=== PATIENT | male | born 1960 | race Caucasian/White ===

== ENCOUNTER 2024-03-10 19:02 | Inpatient (IN) | payer OTHER, MEDICARE, SELFPAY ==
[2024-03-10] VITALS (13 sets, daily range): BP systolic 111–161; BP diastolic 53–78; BMI 34.9
[2024-03-10 14:36] LABS: % Basophils 0.3 % (0-2); % Eosinophils 0.6 % (0-6); % Immature Granulocytes 0.6 % (0-0.5); % Lymphocytes 5.8 % (20.5-51.1); % Monocytes 8.5 % (1.7-9.3); % Neutrophils 84.2 % (42.2-75.2); Absolute Basophils 0.1 10^3/uL (0-0.2); Absolute Eosinophils 0.1 10^3/uL (0-0.7); Absolute Immature Granulocytes 0.1 10^3/uL (0-0.05); Absolute Lymphocytes 0.8 10^3/uL (1.2-3.4); Absolute Monocytes 1.2 10^3/uL (0.1-0.6); Absolute Neutrophils 12.1 10^3/uL (1.4-6.5); Hematocrit 31.3 % (39.0-52.0); Hemoglobin 10.9 g/dL (13.0-18.0); Mean Corp Hgb Conc. 34.8 g/dL (33.0-37.0); Mean Corpuscular Hgb 27.6 pg (27.0-31.0); Mean Corpuscular Volume 79.2 fL (80.0-94.0); Mean Platelet Volume 10.3 fL (7.4-10.4); Nucleated Red Blood Cells % 0 % (-); Platelet Count 238 10^3/uL (130-400); Red Blood Cell Count 3.95 10^6/uL (4.70-6.10); Red Cell Dist. Width 14.4 % (11.5-14.5); White Blood Cell Count 14.4 10^3/uL (4.8-10.8)
--- NOTE | 2024-03-10 14:36 | ED.GENMED ---
History of Present Illness
General
Chief Complaint: Chest Pain
Source: patient and spouse
Time Seen by Provider: 03/10/24 14:24
History of Present Illness
History of Present Illness:
63-year-old male presents emergency department with complaints of discomfort in the left anterior chest that felt 'like a pulled muscle' that he noted when he woke up this morning. Since that time, the pain is now described as a 'discomfort' and
less intense but still present. The pain is worse when he takes a deep breath and he feels like he cannot breathe fully although he denies feeling breathless or short of breath. He denies recent immobilization, recent trauma, leg swelling, family
or personal history of DVT, recent surgery, smoking history, or other DVT risk factors. He denies associated headache, dizziness, nausea, vomiting, diaphoresis, neck pain. Patient states that earlier, with the chest pain, he also had slight back
discomfort which is now fully resolved. This pain was not sudden in onset, and it did not radiate from the chest to the back, in contrast to triage note this was clarified with patient patient took a full dose of aspirin today. He denies a history
of CAD.
Past History
Past History
ED Past Medical History: Other (A-fib, prostate cancer, cto-[id number]-[id number] diabetes)
ED Past Surgical History: Cardiac (Ablation)
Social History
Tobacco: Non-smoker
Alcohol: None
Drug: None
Personal:
Living: with family
Phy Exam
Physical Exam
Physical Exam:
GENERAL: Alert , in no apparent distress
EYE: pupils equal and reactive
NECK: Supple, no significant adenopathy.
ENT: o/p clr, mmm.
CARDIAC: Regular rate and rhythm .
LUNGS: Clear breath sounds bilaterally, no acute respiratory distress, no wheezes/rales/rhonchi
ABDOMEN: Soft, without focal tenderness, no r/g, no cvat
NEUROLOGICAL: Alert and oriented, no focal neuro deficits
SKIN: Warm and dry, skin intact.
MUSCULOSKELETAL: No edema, well perfused.
PSYCH: Normal and appropriate interaction.
Course
Orders/Labs/Results
Orders:
Orders
03/10/24 14:09
ECG [Electrocardiogram (*1)] Urgent
Reason for Study: Chest Pain
EKG- Treatment ONCE
03/10/24 14:27
Complete Blood Count/With Diff Urgent
D-Dimer Urgent
Comment: D DIMER ADDED ON BY FLOOR 2:40PM 03-10-24
PTT Urgent
Prothrombin Time Urgent
03/10/24 14:36
Cardiac Monitoring- Treatment ONCE
03/10/24 14:42
Add On- LAB Urgent
Tests Added?: d-dimer
03/10/24 15:44
Comprehensive Metabolic Panel Urgent
D-Dimer Urgent
Troponin I Urgent
03/10/24 16:22
CT Chest Pe Study Urgent
Comment:
Reason For Exam: cp
03/10/24 16:41
EKG [Electrocardiogram (*1)] Stat
Reason for Study: Chest Pain
03/10/24 16:42
EKG- Treatment ONCE
03/10/24 16:47
Nitroglycerin Sublingual [Nitrostat (Sublingual)] 0.4 mg .ROUTE .STK-MED ONE
03/10/24 16:48
Nitroglycerin Sublingual [Nitrostat (Sublingual)] 0.4 mg SL [id number] PRN
03/10/24 17:51
Ketorolac [Toradol] 15 mg IV NOW STA
03/10/24 18:45
Troponin I Urgent
Abnormal Lab Results
03/10/24 03/10/24
14:27 15:44
WBC 14.4 H 10^3/uL
(4.8-10.8)
RBC 3.95 L 10^6/uL
(4.70-6.10)
Hgb 10.9 L g/dL
(13.0-18.0)
Hct 31.3 L %
(39.0-52.0)
MCV 79.2 L fL
(80.0-94.0)
Abs Immat Gran (auto) 0.1 H 10^3/uL
(0-0.05)
Absolute Neuts (auto) 12.1 H 10^3/uL
(1.4-6.5)
Absolute Lymphs (auto) 0.8 L 10^3/uL
(1.2-3.4)
Absolute Monos (auto) 1.2 H 10^3/uL
(0.1-0.6)
Immature Gran % 0.6 H %
(0-0.5)
Neutrophils % 84.2 H %
(42.2-75.2)
Lymphocytes % 5.8 L %
(20.5-51.1)
PT 14.7 H Sec
(11.4-14.6)
D-Dimer 0.71 H ug/mlFEU 0.72 H ug/mlFEU
(0.00-0.50) (0.00-0.50)
Glucose 163 H mg/dl
(70-99)
03/10/24 14:27
03/10/24 15:44
Vital Signs
Initial and Last Documented VS:
Initial Vital Signs
Temp Pulse Resp BP Pulse Ox
99.2 F 89 20 148/78 95
03/10/24 14:16 03/10/24 14:16 03/10/24 14:16 03/10/24 14:16 03/10/24 14:16
Last Documented Vital Signs
Temp Pulse Resp BP Pulse Ox
99.2 F 101 35 141/66 89
03/10/24 14:16 03/10/24 17:34 03/10/24 17:34 03/10/24 17:36 03/10/24 17:00
Update Note
Update Note:
Patient presents to the Emergency Department with chest pain
Number and Complexity of Problems Addressed at the Encounter
� Chronic conditions affecting care:
� Acute Exacerbation and/or Progression of Chronic Illness:
� Differential Diagnosis includes: But not limited to musculoskeletal pain, ACS, PE, dissection, etc. etc.
Amount and/or Complexity of Data to be Reviewed and Analyzed
� I performed an independent evaluation of and my interpretation is:
EKG: Read by me, compared to 02/11/2018 normal sinus rhythm, questionable subtle st elev in II and v6
CT:
Xrays:
Laboratory Studies:nonspec leukoctyosis, anemia (which is similar to prior values), D dimer sl elevated, trop wnl
Other:
� Review of other/old records reveals:
� Clinical information was obtained by an independent historian:
� Prescriptions/Medications Considered but not given:
� Further testing considered but not performed:
Risk of Complications and/or Morbidity or Mortality of Patient Management
� Social determinants of health affecting care:
� Discussion with other providers (PCP, Hospitalists, Consultants, etc):
� Escalation of care including admission/observation vs risk of discharge considered: ecg reviewed and compared to prior which is from 6 yrs ago...very nonspecific/subtle differences that are not necessarily convincing for
ischemic change. First trop wnl (and he has had sxs since this AM). Recommend repeat trop in 3 hrs, with ecg, if no changes, close cards f/u.
Of note, D dimer sl elevated...does report pleuritic componenent to pain, ct ordered to confirm no pe.
nonspecific leukoctyosis here...no fever, no infectious s/sxs in ros/hx/phys. Pt will be advised to f/u closely regarding labs.
S/o to oncoming physician.
548 PM update,prior to s/o,pt developed worsening cp, assoc with mild hypoxia and tachycardia. ecg repeated X2, ?nonspec st elev and ?pr depressions. Case d/w dr [place] from [facility], who saw pt in Ed, suspects pericarditis. CT result pending but
upon my review suspect mild pericard effusion which would be c/w pericarditis. repeat trop ordered, hospitalists (Anastacio/Dariel) aware re:admission. NSAID ordered. s/o to check ct report.
ED Attending Note
-
Portions of this chart may have been created with voice recognition software.� Occasional wrong word or��sound alike� substitutions may have occurred due to the inherent limitations of voice recognition software.
Discharge Plan
Departure
Patient with high blood pressure during this ER visit?: Yes
Condition: Good
Discharge Problem:
Chest pain
Instructions: BLOOD PRESSURE
Prescriptions:
No Action
atorvastatin 10 MG tablet
10 mg PO DAILY
metoprolol succinate 100 MG tablet extended release 24 hr
100 mg PO DAILY
lisinopril-hydrochlorothiazide 20-12.5 mg tablet
1 tab PO DAILY
Theragen Tablet
1 tab PO DAILY
aspirin 81 mg Tablet,Delayed Release (Dr/Ec)
81 mg PO DAILY
metformin 500 mg tablet extended release 24 hr
1,000 mg PO QPM
Referrals:
Vini Toussaint MD [Family Provider] -
Activity Restrictions/Additional Instructions:
YOU HAVE SOME LAB ABNORMALITIES WHICH NEED TO BE FOLLOWED UP BY YOUR FAMILY DOCTOR. PLEASE SEE HIM PROMPTLY. IN ADDITION, PLEASE SEE YOUR FIRE FIGHTING EQUIPMENT SPECIALIST PROMPTLY (THEY WILL REACH OUT TO YOU TO ARRANGE AN APPT, HOWEVER YOU SHOULD ALSO CONTACT THEM IF
YOU DO NOT HEAR FROM THEM WIHTIN 24 HRS.)
Interventions
Interventions:
*Risk Screen - Suicide Last Done: 03/10/24 14:28
*General Assessment Last Done: 03/10/24 14:28
*Neglect/Abuse Screening Last Done: 03/10/24 14:28
*ED COVID-19 Vaccine History Last Done: 03/10/24 14:28
ED- Cardiac Assessment Last Done: 03/10/24 14:28
Discharge Date and Time
Print Language: TURKMEN
[2024-03-10 15:33] LABS: INR 1.14; PT 14.7 Sec (11.4-14.6)
[2024-03-10 15:34] LABS: APTT 30.4 Sec (23.4-35.0)
[2024-03-10 15:36] LABS: D-Dimer 0.71 ug/mlFEU (0.00-0.50)
[2024-03-10 16:11] LABS: D-Dimer 0.72 ug/mlFEU (0.00-0.50)
[2024-03-10 16:20] LABS: ALT (SGPT) 14 U/L (0-50); AST (SGOT) 18 U/L (17-59); Albumin 4.2 g/dl (3.5-5.0); Alkaline Phosphatase 62 U/L (38-126); Blood Urea Nitrogen 14 mg/dl (9-20); Calcium 9.1 mg/dl (8.4-10.2); Carbon Dioxide 27 mmol/L (22-30); Chloride 101 mmol/L (98-107); Glucose 163 mg/dl (70-99); Potassium 3.9 mmol/L (3.5-5.1); Sodium 139 mmol/L (135-145); Total Protein 6.8 g/dl (6.3-8.2); eGFR > 60.00
[2024-03-10 16:25] LABS: Troponin I < 0.012 ng/ml
[2024-03-10] MEDS: NITROSTAT (SUBLINGUAL) 0.4 MG SL ×3 (16:48→16:59)
--- NOTE | 2024-03-10 17:57 | HPS.HSE ---
Family Physician
-
Family Physician: Vini Toussaint
Chief Complaint
-
Chest pain
History of Present Illness
63 y/o M with PMHx:
Afib s/p ablation
Essential HTN
DM2
h/o prostate CA
who p/w CC CP. The patient had fairly sudden onset chest pain that started this morning. He described as pressure-like and burning. It was initially in his left shoulder and then radiated to the center of his chest. The pain was pleuritic and
worse with movement. He did have some associated shortness of breath. Patient did take aspirin. He denies any alleviating factors. He denies any fevers, nausea, vomiting, diarrhea, abdominal pain. Denies any headache, neck stiffness, visual
disturbances, rash, focal neurological deficit, dysuria. In the ER the patient was given nitroglycerin. And Toradol which helped with his pain.
Medical History
Past Medical History
Past Medical History: Reports Other (as per HPI)
Past Surgical History: Reports Other (N/A)
Social History
Tobacco: Non-smoker
Alcohol: None
Drug: None
Family History
Family History: Not pertinent
Allergies / Home Medications
Allergies reflects when Allergies were last updated in [facility].
Home Medications with original date entered in [facility]
Allergy/Medication List:
Allergies
Allergy/AdvReac Type Severity Reaction Status Date / Time
No Known Allergies Allergy Verified 03/10/24 14:17
Home Medications
atorvastatin 10 mg tablet 10 mg PO DAILY 02/10/18
metoprolol succinate 100 mg tablet,extended release 24 hr 100 mg PO DAILY 02/10/18
aspirin 81 mg tablet,delayed release 81 mg PO DAILY 03/10/24
lisinopril 20 mg-hydrochlorothiazide 12.5 mg tablet 1 tab PO DAILY 03/10/24
metformin 500 mg tablet,extended release 24 hr 1,000 mg PO QPM 08/21/24
therapeutic multivitamin 1 tab PO DAILY 03/10/24
Review of Systems
-
History Source: Patient
A 12 point ROS was completed and negative except as noted: Yes
Physical Exam
Vital Signs
Vital Signs
Temp Pulse Resp BP Pulse Ox
99.2 F 101 35 141/66 89
03/10/24 14:16 03/10/24 17:34 03/10/24 17:34 03/10/24 17:36 03/10/24 17:00
Physical Exam
General: Other (.)
Laboratory Results
-
03/10/24 14:27
03/10/24 15:44
Laboratory Results
PT 14.7 Sec (11.4-14.6) H 03/10/24 14:27
INR 1.14 03/10/24 14:27
APTT 30.4 Sec (23.4-35.0) 03/10/24 14:27
Total Bilirubin 1.0 mg/dl (0.2-1.3) 03/10/24 15:44
AST 18 U/L (17-59) 03/10/24 15:44
ALT 14 U/L (0-50) 03/10/24 15:44
Alkaline Phosphatase 62 U/L (38-126) 03/10/24 15:44
Troponin I < 0.012 ng/ml 03/10/24 15:44
Impression/Plan
-
Gen: NAD, AAOx3.
Eyes: EOMI, PERRLA, no scleral icterus.
Neck: supple.
CV: RRR, +S1/S2, no m/r/g.
Resp: CTAB, no rales, wheezes, or rhonchi.
Abd: +BS, soft, NT, ND
Skin: No rashes.
Neuro: CN 2-12 intact, non-focal.
Psych: Normal mood and affect.
ECG (read by me): Afib with RVR @ 109, nl axis/intervals, no acute ST/TW changes (has repolarization abnormalities)
Chest pain:
-Patient's story is consistent with acute pericarditis. Reports the chest pain is pleuritic and worse with movement of his upper body.
-NTG did help with pain
-initial trop NEG, cont to trend trops
-case discussed with cardiology. ASA 81, toradol/morphine for pain
-check echo
-follow CT chest
Afib with RVR:
-cont home BB
-IV BB PRN
-not on AC MEDICAL RECRUITER
DM2:
-hold home Metformin
-check a1c
-SSI/accuchecks
Essential HTN:
-cont ACEi/HCTZ/BB
FULL/Lovenox
[2024-03-10] MEDS: TORADOL 15 MG IV ×2 (17:58→20:11)
--- NOTE | 2024-03-10 18:03 | CON.CAR ---
Consultation
Consultation Request
Date/Time Consultation Requested: 03/10/24 5:00pm
Date/Time Consultation Performed: 03/10/24 5:15pm
Requesting Provider: Dr Ellison
Performing Provider: Dr Clement
Reason for Consultation: chest pain
Medical History
-
Chief Complaint: chest pain
History of Present Illness:
63-year-old male with past medical history of hypertension, diabetes, hyperlipidemia and paroxysmal atrial fibrillation presents with chest pains. Patient states over the past 12 hours he had a left-sided pain on top of his chest. He also noticed
some pain that radiated to his back. The pain was somewhat positional and seem worse when he took a deep breath. Lying down made the pain worse. It was moderately severe with some mild shortness of breath associated with it. He had no sweats,
radiation, nausea, or vomiting. He has no fevers or chills. He did have COVID 1 month ago. He had cough runny nose and shortness of breath with the COVID at that time. He denies any edema. He has felt no atrial fibrillation although he does get
some rare palpitations. He had an ablation in 2018. He states his blood pressure has been relatively well-controlled.
Past Medical History
Past Medical History: Arrhythmias (Paroxysmal atrial fibrillation status post ablation 2018), Cancer (Prostate cancer), HTN, Hypercholesterolemia and NIDDM
Past Surgical History: Urological (Prostatectomy 2014)
Social History
Tobacco: Non-Smoker
Alcohol: Occasional
Drug: None
Personal:
Living: With Family
Family History
Family History: CAD and Hypertension
Allergies / Home Medications
Allergy/AdvReac Type Severity Reaction Status Date / Time
No Known Allergies Allergy Verified 03/10/24 14:17
�Medication �Instructions �Recorded �Confirmed �Type
atorvastatin 10 mg tablet 10 mg PO DAILY 18 03/10/24 History
metoprolol succinate 100 mg 100 mg PO DAILY 02/10/18 03/10/24 History
tablet,extended release 24 hr
aspirin 81 mg tablet,delayed 81 mg PO DAILY 03/10/24 03/10/24 History
release
lisinopril 20 1 tab PO DAILY 03/10/24 03/10/24 History
mg-hydrochlorothiazide 12.5 mg
tablet
metformin 500 mg tablet,extended 1,000 mg PO QPM 03/10/24 03/10/24 History
release 24 hr
therapeutic multivitamin 1 tab PO DAILY 03/10/24 03/10/24 History
Review of Systems
-
History Source: Patient
Constitutional: No Symptoms
EENT: No Symptoms
Respiratory: Trouble Breathing
Cardiac: Chest Pain and Palpitations
Abdomen/GI: No Symptoms
: No Symptoms
Musculoskeletal: No Symptoms
Skin: No Symptoms
Neurological: No Symptoms
Endocrine: No Symptoms
Hematologic/Lymphatic: No Symptoms
Physical Exam
Vital Signs
Temp Pulse Resp BP Pulse Ox
99.2 F 105 27 141/66 90
03/10/24 14:16 03/10/24 18:00 03/10/24 18:00 03/10/24 17:36 03/10/24 18:00
Lab Results
03/10/24 14:27
03/10/24 15:44
Troponin I < 0.012 ng/ml 03/10/24 15:44
Physical Exam
General: Well Developed and Well Nourished
HEENT: Normocephalic and Anicteric
Respiratory: Rhonchi and Non Labored Respirations
Cardiac: S1/S2, Regular Rhythm and Murmur (07/26 syst LSB)
GI: Soft, Non Tender and Non Distended
Genito-urinary: No Costovertebral Tender
Musculoskeletal: No Cyanosis and No Edema
Skin: Warm and Dry
Neuro: AO x 3
Psych: Calm
Impression / Plan
-
Assess:
Chest pain/possible pericarditis
Abnormal ECG
Paroxysmal atrial fibrillation status post ablation 2017
Diabetes type 2
Hypertension
Hyperlipidemia
Sleep apnea on CPAP
Prostate cancer status post prostatectomy [address] scan of the chest pending
Echocardiogram August 2017, EF 55%, aortic sclerosis, mild MR, PA pressure 35.
Lexiscan nuclear stress test 2017, fixed apical defect with no ischemia
Plan:
He presents with chest pains on the left side of his chest which does radiate to his back. CT scan of the chest was performed with preliminary read as no aortic dissection. First cardiac troponin is negative.
EKG has some diffuse ST elevation with mild OH depression in leads V5 to V6 in 1 and 2. Clinically his case could be explained by pericarditis, although ACS cannot be completely ruled out.
Continue to trend troponins. Check echocardiogram.
Continue aspirin, will give a dose of morphine and Toradol to help with symptoms.
He remains in sinus rhythm with PACs. Continue metoprolol and atorvastatin. Check lipids.
If troponins remain negative would start colchicine in AM. If troponins are abnormal, we may need to consider cardiac cath.
Data Reviewed
-
EKG: Report Reviewed by me
Medical Tests (Nuc Med, Echo etc): Report Reviewed by me
Labs: Labs Reviewed by me
Old Records: Reviewed
[2024-03-10 18:39] LABS: Troponin I < 0.012 ng/ml
--- NOTE | 2024-03-10 20:00 | PTCARENOTE ---
Patient received from ED, AAOx3, complaining of 1/10 chest pain, prn toradol given. NSR with PACs on monitor, afebrile, blood pressure as documented. Palpables pulses throughout, no edema noted. Denies SOB, lungs diminished bibasilar, pulse ox
89% on room air, placed on 2L, pulse ox 95%. Abdomen round with positive bowel sounds. #20 g in LAC flushed and patent. Plan of care discussed, call berman within reach
[2024-03-10] MEDS: NSS 1000 IV (20:11)
[2024-03-10 21:12] LABS: Glucose - Point of Care 195 mg/dl (70-99)
[2024-03-10 23:50] LABS: Troponin I < 0.012 ng/ml
[2024-03-11] VITALS (9 sets, daily range): BP systolic 104–149; BP diastolic 47–78; BMI 35.5
[2024-03-11 05:31] LABS: Hemoglobin 9.3 g/dL (13.0-18.0); Mean Corp Hgb Conc. 34.4 g/dL (33.0-37.0); Mean Corpuscular Volume 81.3 fL (80.0-94.0); Mean Platelet Volume 10.2 fL (7.4-10.4); Platelet Count 178 10^3/uL (130-400); Red Blood Cell Count 3.32 10^6/uL (4.70-6.10); White Blood Cell Count 9.5 10^3/uL (4.8-10.8)
[2024-03-11 05:39] LABS: Blood Urea Nitrogen 14 mg/dl (9-20); Calcium 8.7 mg/dl (8.4-10.2); Carbon Dioxide 24 mmol/L (22-30); Chloride 102 mmol/L (98-107); Estimated Creatinine Clearance 112 ml/min; Glucose 180 mg/dl (70-99); Potassium 3.8 mmol/L (3.5-5.1); Sodium 138 mmol/L (135-145); eGFR > 60.00
--- NOTE | 2024-03-11 07:46 | W.PN.CARDCBS ---
Addendum entered and electronically signed by Tasha Swann DO 03/11/24 15:38:
I saw and examined the patient.
The Division Service Manager's note was reviewed and I agree with the note.
Comment: Seen and examined with at bedside. Overall feeling better after Toradol with improved chest pain. No shortness of breath. No cough. No fevers or chills.
GEN: NAD, AAOx3. RA
HEENT: mmm
LUNGS: Bronchovesicular breath sounds, clear without wheezes
CV: Reg, S1/S2, no murmur. No rub
ABD: soft, BS+, NT/ND
EXT: No lower extremity edema
NEURO: Gross non-focal
SKIN: No rash
Plan:
Chest pain consistent with pericarditis with undetectable troponin.
-Recent COVID illness approximately 1 month ago
-2D echocardiogram with normal LV size and systolic function with moderate to severe concentric left ventricular hypertrophy and EF 63%. RV is enlarged with overall preserved RV systolic function. Right atrium mildly dilated. Mild mitral
regurgitation. Trileaflet aortic valve with mild aortic stenosis. No significant aortic regurgitation. Estimated pulmonary artery pressures 20-25 mmHg. Trivial tricuspid regurgitation. No pericardial effusion.
-CTA of the chest reviewed with patient and : No pulmonary embolism. No thoracic aortic aneurysm. Bilateral subsegmental atelectasis. No significant pleural or pericardial effusion. Reactive mediastinal lymphadenopathy
-Will plan to discharge home on ibuprofen and colchicine
-Start PPI while on NSAIDs
-We discussed activity restrictions while recovering
-Outpatient cardiac follow-up being arranged
-Stable for discharge home
Original Note:
Today's Communication / Plan
-
treating as pericarditis - add nsaids, colchicine
trops negative
check echo
OP cardiac follow up arranged
Impression / Plan
-
Assessment:
Chest pain/suspected pericarditis
Abnormal ECG
Recent covid illness ~1 month ago
Paroxysmal atrial fibrillation status post ablation 2017
Diabetes type 2
Hypertension
Hyperlipidemia
Sleep apnea on CPAP
Prostate cancer status post prostatectomy [address] scan of the chest:
Echocardiogram August 2017, EF 55%, aortic sclerosis, mild MR, PA pressure 35.
Lexiscan nuclear stress test 2018, fixed apical defect with no ischemia
Plan:
-He presented with chest pain. EKG abnormal with suspicion for pericarditis.
-Pain improved with Toradol overnight
-Troponins remain negative
-Check echo
-Remains on aspirin 81 mg daily.
-Add NSAIDs and colchicine
-Remains in sinus rhythm on review of telemetry overnight. Occasional PACs, at times in pattern of bigeminy. Continue metoprolol
-he states he is going on trip to [place] 04/24/24. OP office follow up arranged prior to this
-for possible DC to home later today if remains pain free
-d/w nursing
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
Subjective
Date of Service: March 11, 2024
Minimal chest pain overnight
Objective
Labs:
03/11/24 04:48
03/11/24 04:48
Labs
Hgb 9.3 g/dL (13.0-18.0) L 03/11/24 04:48
Hct 27.0 % (39.0-52.0) L 03/11/24 04:48
Plt Count 178 10^3/uL (130-400) D 03/11/24 04:48
PT 14.7 Sec (11.4-14.6) H 03/10/24 14:27
INR 1.14 03/10/24 14:27
APTT 30.4 Sec (23.4-35.0) 03/10/24 14:27
Sodium 138 mmol/L (135-145) 03/11/24 04:48
Potassium 3.8 mmol/L (3.5-5.1) 03/11/24 04:48
BUN 14 mg/dl (9-20) 03/11/24 04:48
Creatinine 0.8 mg/dL (0.7-1.3) 03/11/24 04:48
Glucose 180 mg/dl (70-99) H 03/11/24 04:48
Troponins
03/10/24 03/10/24 03/10/24
14:27 15:44 18:06
Troponin I Cancelled < 0.012 < 0.012
03/10/24 03/10/24 03/11/24
19:28 23:00 01:28
Troponin I Cancelled < 0.012 Cancelled
Vital Signs and I&O:
Vital Signs
Temp Pulse Resp BP Pulse Ox
97.8 F 87 26 140/74 94
03/11/24 04:25 03/11/24 04:15 03/11/24 04:15 03/11/24 04:00 03/11/24 04:15
Vital Signs
Temp Pulse Resp BP Pulse Ox
97.8 F 87 26 140/74 94
03/11/24 04:25 03/11/24 04:15 03/11/24 04:15 03/11/24 04:00 03/11/24 04:15
Intake & Output
03/08/24 03/09/24 03/10/24 03/11/24
07:59 07:59 07:59 07:59
Output Total 225 / 225
Balance -225 / -225
Physical Exam
Physical Exam
GEN: No distress, awake, alert, oriented x3
HEENT: supple, anicteric, mmm, eomi
LUNGS: CTA B/L, no wheezes/rales
CV: Reg, S1/S2, no murmur
ABD: soft, BS+, NT/ND
EXT: No cyanosis, clubbing, edema
NEURO: Gross non-focal
SKIN: Warm, pink, dry. No rash
--- NOTE | 2024-03-11 08:00 | PTCARENOTE ---
Pt AAOx 3 pleaant . No cp no SOB. oN ROOM AIR AT 96%. aNXIOUS TO GO HOME . aWAITING 2D ECHO.Iv running as ordered. NSR
--- NOTE | 2024-03-11 08:06 | W.PN.HOSP.TC ---
Addendum entered and electronically signed by Tanner Vieira MD 03/11/24 11:20:
I saw and evaluated the patient. I reviewed the resident�s note and agree with findings and plan as documented in the resident�s note.
Gen: NAD, AAOx3.
Eyes: EOMI, PERRLA, no scleral icterus.
Neck: supple.
CV: RRR, +S1/S2, no m/r/g.
Resp: remains CTAB, no rales, wheezes, or rhonchi.
Abd: remains +BS, soft, NT, ND
Skin: No rashes.
Neuro: CN 2-12 intact, non-focal.
Psych: Normal mood and affect.
ECG (read by me): Afib with RVR @ 109, nl axis/intervals, no acute ST/TW changes (has repolarization abnormalities)
CTA chest:
1. No evidence of pulmonary embolism within the limitations as described.
2. Bilateral lower lobe dependent subsegmental atelectasis. Difficult to rule out superimposed pneumonia.
3. Probable reactive mild mediastinal lymphadenopathy.
Chest pain:
-Patient's story is consistent with acute pericarditis. Reports the chest pain is pleuritic and worse with movement of his upper body.
-NTG did help with pain
-all trops NEG
-CTA chest without PE
-start Motrin/Colchicine (and protonix for GI proph)
-check echo and if OK can be discharged
Afib with RVR:
-converted to SR
-cont home BB
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
DM2:
-Metformin was on hold
-a1c 7.3
-SSI/accuchecks
Essential HTN:
-cont ACEi/HCTZ/BB
d/c after echo
Original Note:
Today's Communication/Plan
-
Echo pending
Check lipid panel
Start colchicine today
Start PPI
Check CRP, iron studies
Continue aspirin, morphine, Toradol
Assessment / Plan
Assessment / Plan
IMPRESSION: 3-YEAR-OLD MALE WITH PAST HISTORY OF A-FIB s/p ablation, prostate cancer, COVID-19 (1 month ago) presenting with CHEST PAIN CONSISTENT WITH PERICARDITIS
PLAN:
#Chest pain
Consistent with pericarditis
EKG -ST elevation and VT depression in leads V5, V6, i, II. ST depression in lead aVR. Consistent with pericarditis.
Cardiology following - continue aspirin, morphine, Toradol, troponin (x3) negative, start colchicine today, check lipids
Chest CT: No evidence of PE, bilateral atelectasis difficult to rule out superimposed pneumonia, reactive mild mediastinal lymphadenopathy
Echo pending
#A-fib status post ablation
Currently normal sinus rhythm with PACs
Continue metoprolol
IV Lopressor if needed
#Anemia
Hemoglobin 9.3 today, MCV 81
Check iron studies
#Essential hypertension
Continue Toprol, hydrochlorothiazide, lisinopril
#Hypercholesterolemia
Continue statin
#Diabetes mellitus type 2
Sliding scale insulin
Metformin held
HbA1c pending
Full code
DVT prophylaxis Lovenox
Anticipated Discharge: 24 - 48 hours
Subjective/Interval History
-
Date of Service: March 11, 2024
Objective Data
-
Labs:
Laboratory Results
03/11/24
04:48
WBC 9.5
Hgb 9.3 L
Hct 27.0 L
Plt Count 178 D
Sodium 138
Potassium 3.8
Chloride 102
Carbon Dioxide 24
BUN 14
Creatinine 0.8
Glucose 180 H
Calcium 8.7
Vital Signs:
Vital Signs
Temp Pulse Resp BP Pulse Ox
97.8 F 87 26 140/74 94
03/11/24 04:25 03/11/24 04:15 03/11/24 04:15 03/11/24 04:00 03/11/24 04:15
I&O
03/10/24 03/11/24 03/12/24
06:59 06:59 06:59
Output Total 225 / 225
Balance -225 / -225
Review of Systems
-
History Source: Patient
Constitutional: Reports No Symptoms
EENT: Reports No Symptoms Reported
Respiratory: Reports No Symptoms
Cardiac: Reports No Symptoms
Abdomen/GI: Reports No Symptoms
Genitourinary: Reports No Symptoms
Musculoskeletal: Reports No Symptoms
Skin: Reports No Symptoms
Neuro: Reports No Symptoms
Endocrine: Reports No Symptoms
Hematologic / Lymphatic: Reports No Symptoms
Physical Exam
-
General: Well Developed, Well Nourished and No Apparent Distress
HEENT: Normocephalic
Cardiac: Regular Rhythm and S1/S2
GI: Soft, Nontender and Nondistended
Genito-urinary: No Costovertebral Tender
Musculoskeletal: No Clubbing and No Edema
Neuro: Awake, Alert and Oriented
Hematologic / Lymphatic: No Lymphadenopathy
Psych: Calm
[2024-03-11 08:16] LABS: Glucose - Point of Care 172 mg/dl (70-99)
[2024-03-11 08:34] LABS: Glycohemoglobin (HgbA1c) 7.3 % (4.0-5.6)
[2024-03-11] MEDS: ORETIC 12.5 MG PO (08:38)
[2024-03-11] MEDS: LOW STRENGTH ASPIRIN 81 MG PO (08:38)
[2024-03-11] MEDS: TOPROL XL 100 MG PO (08:39)
[2024-03-11] MEDS: ZESTRIL 20 MG PO (08:39)
[2024-03-11] MEDS: THERAGRAN 1 TABLET PO (08:39)
[2024-03-11] MEDS: LIPITOR 10 MG PO (08:40)
[2024-03-11] MEDS: NOVOLOG FLEXPEN-MODERATE RESISTANCE 1 UNITS SC (08:41)
[2024-03-11] MEDS: COLCHICINE 0.6 MG PO (08:46)
[2024-03-11] MEDS: NSS 1000 IV (08:48)
[2024-03-11 09:10] LABS: HDL Cholesterol 38 mg/dl; LDL Cholesterol, Calculated 47 mg/dl; Total Cholesterol 101 mg/dl (50-199); Triglyceride 81 mg/dl (10-149); Very Low Density Lipoprotein 16 mg/dl (0-30)
[2024-03-11] MEDS: MOTRIN 800 MG PO ×2 (10:02→15:38)
[2024-03-11] MEDS: PROTONIX 40 MG PO (12:22)
[2024-03-11 12:39] LABS: Glucose - Point of Care 212 mg/dl (70-99)
[2024-03-11] MEDS: NOVOLOG FLEXPEN-MODERATE RESISTANCE 3 UNITS SC (12:42)
--- NOTE | 2024-03-11 15:27 | W.DCSUMMARY ---
Addendum entered and electronically signed by Tanner Vieira MD 03/12/24 08:15:
Read, reviewed, and agree. See same day progress note for additional details.
Total time spent on d/c = 32 min. This included today's physical exam, progress note, review of laboratory and diagnostic data, preparation of discharge documents and prescriptions, and discussions about the pt's hospital course and discharge plan
with the patient and other medical coordinator pesticide use involved in the patient's care.
Original Note:
Discharge Summary
Discharge Data
Date of Admission: 03/10/24
Date of Discharge: 03/11/24
Total time spent discharging patient (in min): 43
-
Pending Results: No
Hospital Course
Primary diagnosis:
Pericarditis
Essential hypertension
Hypercholesterolemia
Anemia (chronic)
Secondary diagnoses:
Diabetes mellitus type 2
Atrial fibrillation status post ablation
History of prostate cancer status post prostatectomy
Hospital course:
63-year-old male with past medical history of hypertension diabetes hyperlipidemia and paroxysmal A-fib presenting with positional chest pain aggravated by lying flat and taking deep breaths, radiating to his back. Had associated shortness of
breath. Patient stated he had COVID 19 infection one month ago. EKG showed diffuse ST elevation and OR depression in leads V5, V6, I, II and ST depression in lead aVR, consistent with pericarditis. Troponin (x3) remained negative. Cardiology was
consulted for pericarditis management, recommended continuing aspirin, metoprolol, statin, started morphine and Toradol for pain and recommended colchicine for [address] chest demonstrated no evidence of pulmonary embolism, bilateral atelectasis
difficult to rule out superimposed pneumonia, reactive mild mediastinal lymphadenopathy. Echo was insignificant. Lipid profile normal. HbA1c 7.3. Patient noted to have normocytic anemia (noted to be chronic), advised to follow-up with family
physician and check iron studies.
Patient is medically stable to be discharged home with colchicine 0.6 mg twice daily (to be continued until seen in office 04/15), Motrin 800 mg 3 times daily for 1 week and Protonix 40 mg daily for prophylaxis. Home meds to be continued.
Outpatient follow-up with cardiology (04/15/2024) for further dosing of colchicine.
Discharge Plan
-
Patient Disposition: Home (Routine Discharge)
Discharge Diagnosis/Procedures: Pericarditis, essential hypertension, diabetes mellitus type 2, h/o prostate cancer, hyperlipidemia, atrial fibrillation s/p ablation
Diet: Diabetic, Carb Controlled
Activity: As tolerated
Driving Restrictions: As prior to admission
Bathing Restrictions: None
Activity Restrictions/Additional Instructions:
take motrin 800mg 3 times a day for 1 week. continue colchicine until seen in office 04/15 and we can discuss further dosing at that point. Follow-up with family physician for low hemoglobin level.
Referrals:
Vini Toussaint MD [Family Provider] - (Anemia (normocytic))
Lisandra Kim PA-C [Specified Professional Personl] - 04/15/24 10:00 am (You have a cardiology follow-up appointment at the [facility] office with Dr. Swann's physician assistant store manager sales, Lisandra. Please call with questions)
Prescriptions:
New
ibuprofen 800 mg Tablet
800 mg PO TID Qty: 21 0RF
pantoprazole 40 mg Tablet,Delayed Release (Dr/Ec)
40 mg PO DAILY Qty: 14 0RF
colchicine 0.6 mg Tablet
0.6 mg PO BID Qty: 60 1RF
Continued
atorvastatin 10 MG tablet
10 mg PO DAILY
metoprolol succinate 100 MG tablet extended release 24 hr
100 mg PO DAILY
lisinopril-hydrochlorothiazide 20-12.5 mg tablet
1 tab PO DAILY
therapeutic multivitamin Tablet
1 tab PO DAILY
aspirin 81 mg Tablet,Delayed Release (Dr/Ec)
81 mg PO DAILY
metformin 500 mg tablet extended release 24 hr
1,000 mg PO QPM
Discharge Orders:
Discharge Patient (As Directed); Ordered 03/11/24
Ordered By: Dariela Martinez
Discharge Date and Time
Discharge Date/Time: 03/11/24 16:05
Print Language: PANAMANIAN
--- NOTE | 2024-03-11 16:09 | PTCARENOTE ---
PT DC to home, Dr Vieira stated ECHO normal info passed to pt
--- NOTE | 2024-03-11 17:20 | CM ---
Patient with Dx chest pain.
Met with patient who resides with his in a 2 story house with 1 [address].
The patient has been independent in ADLs and ambulation.
The patient has no DME, prior VN or SNF.
PCP - Vini Toussaint
[facility] - [facility]
The patient says he feels ready for discharge home today. IMM completed. His will transport him home today.
No CM d/c needs identified.
Plan home today.
== END 2024-03-11 16:05 | disposition home or self-care (01) | DRG 316 ==
LOC: IMU 19:02
PROVIDERS: ADMITTING PHYSICIAN Internal Medicine; CONSULT PHYSICIAN Internal Medicine Cardiovascular Disease; EMERGENCY PHYSICIAN Emergency Medicine; FAMILY PHYSICIAN Family Medicine
DX: I30.9 Acute pericarditis, unspecified (principal); I48.0 Paroxysmal atrial fibrillation; E11.9 Type 2 diabetes mellitus without complications; I10 Essential (primary) hypertension; E78.00 Pure hypercholesterolemia, unspecified; D64.9 Anemia, unspecified; Z79.82 Long term (current) use of aspirin; Z86.16 Personal history of COVID-19; Z85.46 Personal history of malignant neoplasm of prostate; Z79.84 Long term (current) use of oral hypoglycemic drugs
CPT/HCPCS: 71275; 80048; 80053; 80061; 82962; 83036; 84484; 85025; 85027; 85379; 85610; 85730; 93005; 93306; 99285; Q9967

== ENCOUNTER → 2025-05-04 14:45 | Outpatient (REF) | payer OTHER, SELFPAY | LOC: RCS 14:45 | PROVIDERS: ATTENDING PHYSICIAN Internal Medicine Cardiovascular Disease; FAMILY PHYSICIAN Family Medicine | DX: I48.91 Unspecified atrial fibrillation (principal) | CPT/HCPCS: 93306 ==